=== PATIENT | male | born 1965 | race African-American/Black ===

== ENCOUNTER 2024-09-10 16:44 | Emergency (ER) | payer MEDICAID ==
[~2024-09-10] VITALS: Ht 182.9 cm; Wt 97.3 kg
[2024-09-10 16:49] VITALS: TEMP 98.2
[2024-09-10 20:19] VITALS: BP 141/90; PULSE 48; RESP 18; O2SAT 98
[2024-09-10] MEDS ORDERED: CefTRIAXone SODIUM 1 GM/VIAL ONE (21:06)
[2024-09-10] MEDS ORDERED: LIDOCAINE/PF 1% 2 ML VIAL ONE (21:06)
[2024-09-10] MEDS: LIDOCAINE/PF 1% 2 ML VIAL IM ONE (21:09)
[2024-09-10] MEDS: CefTRIAXone SODIUM 1 GM/VIAL IM ONE (21:09)
== END 2024-09-10 21:24 | disposition home or self-care (01) ==
LOC: EMS 16:44
DX: J98.4 Other disorders of lung (principal); R05.9 Cough, unspecified
CPT/HCPCS: 99285; 71250; 71045; 96372; J0696; J3490